=== PATIENT | male | born 1960 | race Two or more races ===

== ENCOUNTER 2017-07-14 17:58 | Emergency (ER) | payer OTHER ==
[~2017-07-14] VITALS: Ht 193 cm; Wt 91.6 kg
[~2017-07-14 17:58] MED LIST: AMBIEN10 MG; ANAPROX275 MG PO; CIPRO500 MG PO; FLAGYL I.V500 MG/100 IV; FLEXERIL10 MG PO; IBUPROFEN800 MG PO; INTESTINEX1 CAP PO; MEDROL4 MG PO; METRONIDAZOLE500 MG PO; NORFLEX100 MG PO; PERCOCET 5/3251 TAB; PREVACID30 MG PO; STOOL SOFTENER50 MG; TORADOL10 MG PO
[2017-07-14] MEDS ORDERED: DICLOFENAC POTA50 MG PO (19:19)
== END 2017-07-14 20:08 | disposition home or self-care (01) ==
LOC: ER 17:58
DX: M62.830 Muscle spasm of back (principal); M54.5 Low back pain

== ENCOUNTER 2018-08-26 00:58 | Emergency (ER) | payer OTHER ==
[~2018-08-26] VITALS: Ht 193 cm; Wt 97.5 kg
[~2018-08-26 00:58] MED LIST changes: +DICLOFENAC POTA50 MG PO
[2018-08-26] MEDS ORDERED: ORPHENADRINE C100 MG PO (04:24)
[2018-08-26] MEDS ORDERED: KETO10TA2 PO (04:24)
== END 2018-08-26 04:35 | disposition home or self-care (01) ==
LOC: ER 00:58
DX: M54.31 Sciatica, right side (principal)

== ENCOUNTER 2018-10-21 14:46 | Emergency (ER) | payer OTHER ==
[~2018-10-21] VITALS: Ht 193 cm; Wt 98.0 kg
[~2018-10-21 14:46] MED LIST changes: +KETO10TA2 PO; +ORPHENADRINE C100 MG PO
[2018-10-21] MEDS ORDERED: SIMBALTA (15:05)
[2018-10-21] MEDS ORDERED: BUSPIRONE HCL10 MG (15:08)
== END 2018-10-21 16:42 | disposition home or self-care (01) ==
LOC: ER 14:46
DX: S43.085A Other dislocation of left shoulder joint, initial encounter (principal); W18.39XA Other fall on same level, initial encounter; Y93.E9 Activity, other interior property and clothing maintenance; Y92.018 Other place in single-family (private) house as the place of occurrence of the external cause; Y99.8 Other external cause status

== ENCOUNTER 2020-04-10 05:18 | Emergency (ER) | payer OTHER ==
[~2020-04-10] VITALS: Ht 190.5 cm; Wt 100.7 kg
[~2020-04-10 05:18] MED LIST changes: +BUSPIRONE HCL10 MG; +SIMBALTA
[2020-04-10] MEDS ORDERED: LAMICTAL100 M1 (05:46)
[2020-04-10] MEDS ORDERED: RESTORIL15 M1 (05:46)
[2020-04-10] MEDS ORDERED: MIRTAZAPINE15 MG (05:46)
[2020-04-10] MEDS ORDERED: TRANXENE T-TAB7.5 MG (05:47)
[2020-04-10] MEDS ORDERED: KETO10TA2 PO (07:35)
[2020-04-10] MEDS ORDERED: ORPHENADRINE C100 MG PO (07:35)
[2020-04-10] MEDS ORDERED: GABAPENTIN400 MG PO (07:39)
== END 2020-04-10 07:53 | disposition home or self-care (01) ==
LOC: ER 05:18
DX: M54.5 Low back pain (principal)

== ENCOUNTER 2024-03-27 09:45 | Inpatient (IN) | payer OTHER ==
[~2024-03-27] VITALS: Ht 193 cm; Wt 100.7 kg
[~2024-03-27 09:45] MED LIST changes: -BUSPIRONE HCL10 MG; +BUSPIRONE HCL10 MG PO; +GABAPENTIN400 MG PO; +LAMICTAL100 M1; +MIRTAZAPINE15 MG; +RESTORIL15 M1; +TRANXENE T-TAB7.5 MG
[2024-03-27] MEDS ORDERED: CYMBALTA60 MG PO (11:31)
[2024-03-27] MEDS ORDERED: LORAZEPAM0.5 MG PO (11:32)
[2024-03-27] MEDS ORDERED: METFORMIN HCL500 M3 PO (11:32)
[2024-04-05] MEDS ORDERED: PERCOCET 5-3251 EACH PO (13:56)
[2024-04-05] MEDS ORDERED: MEDROLPACK PO (13:56)
[2024-04-05] MEDS ORDERED: COLACE100 MG PO (13:57)
[2024-04-05] MEDS ORDERED: ENALAPRILAT DIHYDRATE 1.25 MG/ML VIAL IV PRN (15:30)
[2024-04-05] MEDS ORDERED: 0.9 % SODIUM CHLORIDE 1,000 ML IV SCH (15:30)
[2024-04-05] MEDS ORDERED: PROMETHAZINE HCL 50 MG/ML AMPUL IM PRN (15:30)
[2024-04-05] MEDS ORDERED: VANCOMYCIN HCL 1,000 MG VIAL IV ONE (16:45)
[2024-04-05] MEDS ORDERED: METHYLPREDNISOLONE ACETATE 80 MG/ML VIAL IU ONE (16:45)
[2024-04-05] MEDS ORDERED: METHYLPREDNISOLONE SOD SUCC 125 MG VIAL IV ONE (16:45)
[2024-04-05] MEDS ORDERED: TRANEXAMIC ACID 100MG/1ML (1000MG) AMPUL IV ONE (16:45)
[2024-04-05] MEDS ORDERED: HEMOSTATIC MATRIX WITH THROMBIN KIT TOP ONE (16:45)
[2024-04-05] MEDS ORDERED: BUSPIRONE HCL 15 MG TABLET PO SCH (17:00)
[2024-04-05] MEDS ORDERED: MetFORMIN HCL 500 MG TABLET PO SCH (17:00)
[2024-04-05] MEDS ORDERED: MORPHINE SULFATE 4 MG,MORPHINE SULFATE 2 MG IV SCH (17:00)
[2024-04-05] MEDS ORDERED: MORPHINE SULFATE 4 MG/ML VIAL IV SCH (17:00)
[2024-04-05] MEDS ORDERED: DOCUSATE SODIUM 100MG CAP PO SCH (17:00)
[2024-04-05] MEDS ORDERED: FAMOtidine 20 MG TABLET PO SCH (17:00)
[2024-04-05] MEDS ORDERED: METHYLPREDNISOLONE SOD SUCC 125 MG VIAL IV SCH (21:00)
[2024-04-05] MEDS ORDERED: TEMAZEPAM 15 MG CAPSULE PO SCH (21:00)
[2024-04-05] MEDS ORDERED: VANCOMYCIN HCL 1,000 MG VIAL IV SCH (21:00)
[2024-04-05 21:14] VITALS: BP 143/78; O2SAT 97
[2024-04-05 23:52] VITALS: BP 131/78; O2SAT 96
[2024-04-06] MEDS ORDERED: SODIUM CHLORIDE 0.45 % 1,000 ML IV SCH
[2024-04-06 04:00] VITALS: BP 123/60; O2SAT 96
[2024-04-06] MEDS ORDERED: OxyCODONE HCL/APAP UD (PERCOCET) PO PRN (06:01)
[2024-04-06 08:35] VITALS: BP 108/55; O2SAT 98
[2024-04-06] MEDS ORDERED: Duloxetine HCl 60 MG CAPSULE.DR PO SCH (09:00)
[2024-04-06] MEDS ORDERED: TAMSULOSIN HCL 0.4 MG CAP PO SCH (09:00)
[2024-04-06 11:58] VITALS: BP 130/68; O2SAT 98
== END 2024-04-06 12:08 | disposition home or self-care (01) | DRG 473 ==
LOC: O/R 04-05 07:32 → SURH 04-05 09:45 → PED 04-05 18:16
PROVIDERS: ADMIT Orthopaedic Surgery Orthopaedic Surgery of the Spine; ATTEND Orthopaedic Surgery Orthopaedic Surgery of the Spine
PROC: 0RT30ZZ Resection of Cervical Vertebral Disc, Open Approach (ICD-10-PCS; 2024-04-05)
PROC: 07DS0ZZ Extraction of Vertebral Bone Marrow, Open Approach (ICD-10-PCS; 2024-04-05)
PROC: 4A11X4G Monitoring of Peripheral Nervous Electrical Activity, Intraoperative, External Approach (ICD-10-PCS; 2024-04-05)
PROC: 0RG20A0 Fusion of 2 or more Cervical Vertebral Joints with Interbody Fusion Device, Anterior Approach, Anterior Column, Open Approach (ICD-10-PCS; principal; 2024-04-05 16:45)
DX: M50.023 Cervical disc disorder at C6-C7 level with myelopathy (principal)

== ENCOUNTER 2024-08-17 11:41 | Emergency (ER) | payer OTHER ==
[~2024-08-17] VITALS: Ht 193 cm; Wt 97.1 kg
[~2024-08-17 11:41] MED LIST changes: +COLACE100 MG PO; +CYMBALTA60 MG PO; +LORAZEPAM0.5 MG PO; +MEDROLPACK PO; +METFORMIN HCL500 M3 PO; +PERCOCET 5-3251 EACH PO
[2024-08-17] MEDS ORDERED: SIMVASTATIN5 MG PO (12:27)
[2024-08-17] MEDS ORDERED: KETOROLAC TROMETHAMINE 60 MG VIAL IM STA (14:14)
[2024-08-17 15:16] LABS: HEMATOCRIT 44.8 % (39.0-48.0); HEMOGLOBIN 14.9 g/dL (13-16.00); MEAN CELL VOLUME 77.7 fL (80.0-100.00); MEAN CORPUSCULAR HEMOGLOBIN 25.8 pg (27.00-32.0); MEAN CORPUSCULAR HGB CONC 33.2 g/dl (32.0-36.0); PLATELET COUNT 354 K/uL (150-450); RED BLOOD COUNT 5.77 M/uL (4.00-6.00); RED CELL DISTRIBUTION WIDTH 16.8 % (11.5-14.5)
[2024-08-17 15:44] LABS: PH,URINE 5.5 (5.0-8.0); URINE APPEARANCE Clear; URINE BACTERIA 13.4 uL (0.0-1933); URINE BILIRRUBIN Negative (NEGATIVE); URINE BLOOD Negative; URINE COLOR Yellow; URINE EPITHELIAL CELLS 1.8 uL (0.0-38.8); URINE GLUCOSE 500 MG/DL (NEGATIVE); URINE KETONE 15 (NEGATIVE); URINE LEUKOCYTE Negative; URINE NITRATE Negative; URINE PROTEIN Negative (NEGATIVE); URINE RBC 2.3 uL (0.0-20.8)
[2024-08-17 17:09] LABS: CALCIUM 9.4 mg/dL (8.5-10.1); CREATININE SERUM 1.1 mg/dL (0.70-1.30); GFR 67.39; POTASSIUM 4.31 mEq/L (3.5-5.1)
== END 2024-08-17 18:39 | disposition home or self-care (01) ==
LOC: ER 11:44
PROVIDERS: General Practice
DX: R53.81 Other malaise (principal); R53.1 Weakness; Z20.822 Contact with and (suspected) exposure to COVID-19; Z88.0 Allergy status to penicillin; Z91.018 Allergy to other foods
CPT/HCPCS: 36415; 96365; 99282; J1885

== ENCOUNTER 2024-11-10 13:39 | Emergency (ER) | payer OTHER ==
[~2024-11-10] VITALS: Ht 193 cm; Wt 102.5 kg
[~2024-11-10 13:39] MED LIST changes: +SIMVASTATIN5 MG PO
[2024-11-10] MEDS ORDERED: KETOROLAC TROMETHAMINE 60 MG VIAL IM ONE ×2 (16:30→16:32)
== END 2024-11-10 18:04 | disposition home or self-care (01) ==
LOC: ER 13:44
DX: M79.672 Pain in left foot (principal); Z88.0 Allergy status to penicillin; Z88.8 Allergy status to other drugs, medicaments and biological substances

== ENCOUNTER → 2024-11-30 | Emergency (ER) | payer OTHER ==
[~2024-11-30] VITALS: Ht 193 cm; Wt 101.6 kg
[~2024-11-30] MED LIST changes: +KETOROLAC TROMETHAMINE 30 MG VIAL IM STA; +KETOROLAC TROMETHAMINE 30 MG VIAL ONE; +ORPHENADRINE CITRATE 30 MG/ML AMPUL IM STA; +ORPHENADRINE CITRATE 30 MG/ML AMPUL ONE
== END | disposition home or self-care (01) ==
LOC: ER 18:28
DX: M25.511 Pain in right shoulder (principal); Z88.0 Allergy status to penicillin; Z88.8 Allergy status to other drugs, medicaments and biological substances

== ENCOUNTER 2025-01-07 15:41 | Emergency (ER) | payer OTHER ==
[~2025-01-07] VITALS: Ht 182.9 cm; Wt 100.7 kg
[~2025-01-07 15:41] MED LIST changes: -KETOROLAC TROMETHAMINE 30 MG VIAL IM STA; -KETOROLAC TROMETHAMINE 30 MG VIAL ONE; -ORPHENADRINE CITRATE 30 MG/ML AMPUL IM STA; -ORPHENADRINE CITRATE 30 MG/ML AMPUL ONE
[2025-01-07] MEDS ORDERED: RESTORIL15 MG (16:55)
[2025-01-07] MEDS ORDERED: DEXAMETHASONE SODIUM PHOSPHATE 4 MG/ML VIAL IM ONE (18:30)
[2025-01-07] MEDS ORDERED: KETOROLAC TROMETHAMINE 30 MG VIAL IM ONE (18:30)
== END 2025-01-07 20:49 | disposition home or self-care (01) ==
LOC: ER 15:41
DX: M25.511 Pain in right shoulder (principal); Z88.0 Allergy status to penicillin; Z88.8 Allergy status to other drugs, medicaments and biological substances